=== PATIENT | female | born 1995 | race Caucasian/White ===

== ENCOUNTER 2021-05-31 17:39 | Observation (INO) | payer OTHER, SELFPAY ==
[~2021-05-31] VITALS: Ht 170.2 cm; Wt 103.0 kg
[~2021-05-31 17:39] MED LIST: ACET-10509 PO; FERR325E14 PO
[2021-05-31 17:49] VITALS: BP 126/72
--- NOTE | 2021-05-31 18:04 | NUR ---
Dr. Dill at the bedside evaluating patient.
--- NOTE | 2021-05-31 18:13 | NUR ---
C/O SALMERON, STABBING CP (04/07 TODAY), COUGH, SORE THROAT X 3 DAYS.COVID TESTED + 4 DAYS AGO. LMP 10/07/20. 33 WEEKS. PMH: OVARIAN CYST SURGERY Allergies: PCN Rx: denies
[2021-05-31] MEDS ORDERED: ACETAMINOPHEN 325 MG TAB PO ONE (18:20)
[2021-05-31] MEDS ORDERED: NACL 0.9% 1,000 ML IV ONE (18:20)
[2021-05-31] MEDS ORDERED: REGENERON ANTIBODY ER ORDER 1 EA MISC MC ONE (18:35)
--- NOTE | 2021-05-31 18:43 | NUR ---
Sinan at the pharmacy notified and aware of Regeneron Antibody order. Per Sinan at the pharmacy, he will notify the pharmacist of the order.
--- NOTE | 2021-05-31 18:44 | NUR ---
xray at the bedside Addendum: 05/31/21 at 1852 by FABIEN Amendment undariel in EDM - 05/31/21 at 1853 by FABIEN RT at the bedside scotty Mcbride
[2021-05-31 18:51] LABS: BASOPHILS % (AUTO) 0.2 % (0.0-2.0); HEMATOCRIT 39.4 % (36-48); LYMPHOCYTES # (AUTO) 0.8 K/uL (2.5-16.5); LYMPHOCYTES % (AUTO) 15.8 % (20.5-51.1); MEAN CORPUSCULAR HEMOGLOBIN 27 pg (27-31); MEAN CORPUSCULAR HGB CONC 33 g/dL (33-37); MEAN CORPUSCULAR VOLUME 81.2 fL (80-94); MONOCYTES # (AUTO) 0.3 K/uL (0.8-1.0); NEUTROPHILS # (AUTO) 4.2 K/uL (1.8-7.7); PLATELET COUNT (AUTO) 204 K/uL (140-450); RED BLOOD CELL COUNT(AUTO) 4.85 MIL/uL (4.20-5.40); WHITE BLOOD COUNT (AUTO) 5.3 K/uL (4.8-10.8)
--- NOTE | 2021-05-31 18:52 | NUR ---
RT at the bedside drawing Rae
--- NOTE | 2021-05-31 18:53 | NUR ---
NST being performed at the bedside
--- NOTE | 2021-05-31 18:57 | NUR ---
Novel Coronavirus, rosie, and influenza a/b specimens collected and given to rn labor and delivery.
[2021-05-31] MEDS ORDERED: NON-FORMULARY ITEM 1 EA in NACL 0.9% 100 ML IV SCH (19:00)
[2021-05-31] MEDS ORDERED: AZITHROMYCIN 500 MG in DEXTROSE 5% 250 ML IV ONE (19:05)
[2021-05-31 19:13] LABS: ALBUMIN 2.6 g/dL (3.4-5.0); ANION GAP 18.6 (8-16); CARBON DIOXIDE 16.8 mmol/L (21-32); CREATININE 0.7 mg/dL (0.6-1.3); POTASSIUM 3.4 mmol/L (3.5-5.1); TOTAL BILIRUBIN 0.5 mg/dL (0.0-1.0)
--- NOTE | 2021-05-31 19:23 | NUR ---
Report given to XENIA Freeman for continuation of care.
--- NOTE | 2021-05-31 19:24 | NUR ---
report received from kristofer johnson. transfer of care at this time.
--- NOTE | 2021-05-31 19:30 | NUR ---
pt is sitting up in bed, denies pain and discomfort. stated she is only sob of moving around. pt is in stable condition. vss.
--- NOTE | 2021-05-31 19:45 | NUR ---
Started Regeron iv on pt. vss. pt in stable condition.
--- NOTE | 2021-05-31 20:15 | NUR ---
regeneron completed pt continues in stable condition. vss.
[2021-05-31] MEDS ORDERED: cefTRIAXone 1,000 MG VIAL ONE (20:26)
[2021-05-31] MEDS ORDERED: AZITHROMYCIN 500 MG INJ VIAL IV ONE (20:45)
--- NOTE | 2021-05-31 21:00 | NUR ---
provided with food per request.
--- NOTE | 2021-05-31 21:15 | NUR ---
pt sitting up in bed eating. vss. denies pain and discomfort. temp retaken 97.6.
[2021-05-31] MEDS ORDERED: ACETAMINOPHEN 325 MG TAB PO PRN (21:35)
[2021-05-31] MEDS ORDERED: MAG SULF 2000 MG/WATER PREMIX 50 ML IV PRN (21:35)
[2021-05-31] MEDS ORDERED: HYDROcodone/APAP 5/325 MG 1 TAB TAB PO PRN (21:35)
[2021-05-31] MEDS ORDERED: POTASSIUM CHLORIDE 10 MEQ TABER PO PRN (21:35)
[2021-05-31] MEDS ORDERED: KCL 20 MEQ/WATER INJ PREMIX 200 ML IV PRN (21:35)
[2021-05-31] MEDS ORDERED: MAGNESIUM OXIDE 400 MG TAB PO PRN (21:35)
--- NOTE | 2021-05-31 21:56 | NUR ---
PT HAD A BM, UNABLE TO COLLECT URINE.
--- NOTE | 2021-05-31 22:15 | NUR ---
CALLED AND GAVE REPORT TO XENIA VILA EXT [phone]. GOING TO RM 113.
--- NOTE | 2021-05-31 22:30 | NUR ---
Patient will be admitted to care of . Admited to [facility]. Will go to room 113. Belongings list completed. Report to rolando miner.
--- NOTE | 2021-05-31 22:35 | NUR ---
PATIENT WAS BROUGHT TO THE UNIT FROM ER VIA WHEELCHAIR. CC: COUGH, SOB DX: COVID POSITIVE . AAOX4, AMBULATORY, 33 WEEKS . NO S/S OF RESPIRATORY DISTRESS. BREATHING REGULAR NON LABORED. AFEBRILE. MRSA SCREENING DONE. ALL SAFETY PRECAUTIONS ARE IN PLACE. CALL LIGHT WITHIN REACH. NO COMPLAINTS OF PAIN AT THIS TIME. WILL CONTINUE TO MONITOR.
[2021-06-01] VITALS: BP 106/70
--- NOTE | 2021-06-01 02:00 | NUR ---
COMPLAINED OF COUGHING, PAGED DR. FAGAN AWAITING FOR CALL BACK. ENCOURAGED PT TO DRINK WATER.
[2021-06-01 06:34] LABS: APPEARANCE,URINE CLEAR (CLEAR); BILIRUBIN,URINE NEGATIVE (NEGATIVE); BLOOD, URINE NEGATIVE (NEGATIVE); COLOR,URINE YELLOW (YELLOW); LEUKOCYTE ESTERASE ,URINE NEGATIVE (NEGATIVE); NITRITE, URINE NEGATIVE (NEGATIVE); UGLUCOSE TRACE (NEGATIVE)
--- NOTE | 2021-06-01 07:00 | NUR ---
PT COMPLAINED OF COUGHING. PAGED DR. LATOYA DR. CALLED BACK AT 0713 WITH ORDER OF SANTOSITUSSIN. ENDORSED TO THE AM NURSE FARRAH TO GIVE THE COUGH MEDICATION.
[2021-06-01 07:02] LABS: RBC,URINE 0-5 /HPF (0-5); WBC,URINE 0-5 /HPF (0-5)
[2021-06-01] MEDS ORDERED: guaiFENesin 20 MG/ML UDC PO PRN ×2 (07:15→08:27)
[2021-06-01 07:26] LABS: BASOPHILS % (AUTO) 0.1 % (0.0-2.0); HEMATOCRIT 36.6 % (36-48); HEMOGLOBIN 12.1 g/dL (12.0-16.0); LYMPHOCYTES # (AUTO) 0.8 K/uL (2.5-16.5); LYMPHOCYTES % (AUTO) 12.4 % (20.5-51.1); MEAN CORPUSCULAR HEMOGLOBIN 27 pg (27-31); MEAN CORPUSCULAR HGB CONC 33 g/dL (33-37); MEAN CORPUSCULAR VOLUME 80.4 fL (80-94); MONOCYTES # (AUTO) 0.2 K/uL (0.8-1.0); MONOCYTES % (AUTO) 3.6 % (1.7-9.3); NEUTROPHILS # (AUTO) 5.5 K/uL (1.8-7.7); NEUTROPHILS % (AUTO) 83.9 % (42.2-75.2); PLATELET COUNT (AUTO) 203 K/uL (140-450); RED BLOOD CELL COUNT(AUTO) 4.55 MIL/uL (4.20-5.40); WHITE BLOOD COUNT (AUTO) 6.5 K/uL (4.8-10.8)
--- NOTE | 2021-06-01 07:30 | NUR ---
PT RECEIVED FROM TRANSACTIONAL ATTORNEY RN . PT RESTING IN BED DANGLING WORRIED ABOUT HER CARE. PT EDUCATED REORIENTED TO HOSPITAL ENVIRONMENT AND POLICIES. CALL LIGHT WITHIN REACH
[2021-06-01 07:41] LABS: ALBUMIN 2.4 g/dL (3.4-5.0); ANION GAP 16.3 (8-16); CREATININE 0.6 mg/dL (0.6-1.3); MAGNESIUM 1.6 mg/dL (1.8-2.4); POTASSIUM 3.3 mmol/L (3.5-5.1); TOTAL BILIRUBIN 0.4 mg/dL (0.0-1.0)
--- NOTE | 2021-06-01 07:45 | NUR ---
MOTHER CALLED WAS WITH PT. CALLED BACK NO ANSWER
[2021-06-01 08:00] VITALS: BP 123/81
--- NOTE | 2021-06-01 08:15 | NUR ---
CALLED BACK MOTHER NO ANSWER.
[2021-06-01] MEDS: CEFEPIME 1,000 MG in DEXTROSE 5% 50 ML IV SCH ×2 (08:29→21:36)
--- NOTE | 2021-06-01 08:42 | NUR ---
TEMP 100.2 , TYLENOL PROVIDED Addendum: 06/01/21 at 1657 by Ramona Weiss RN RN ICE PACKS AND COOLING MEASURES PLACED
--- NOTE | 2021-06-01 08:54 | NUR ---
PATIENT HAS BEEN SCREENED AND CATEGORIZED HIGH NUTRITION RISK. PATIENT WILL BE SEEN WITHIN 1-2 DAYS OF ADMISSION. 06/01/21-06/02/[address]
[2021-06-01] MEDS: AZITHROMYCIN 500 MG in DEXTROSE 5% 250 ML IV SCH (09:00)
--- NOTE | 2021-06-01 09:45 | NUR ---
PT CONDITION IS STABLE. WILL CONTINUE TO MONITOR.
--- NOTE | 2021-06-01 10:27 | NUR ---
SPOKE TO PTS FAMILY , MOTHER [phone] . ALL QUESTIONS ANSWERED REGARDING DAUGHTERS CARE. PT STATES IT IS OKAY TO GIVE MOTHER INFORMATION .
[2021-06-01] MEDS: ONDANSETRON 4 MG/2 ML VIAL IVP PRN (11:41)
--- NOTE | 2021-06-01 11:42 | NUR ---
PT REASSESSED COMPLAINS OF NAUSEA , PRN MEDICATION GIVEN PER MD ORDER. PT EDUCATED VERBALIZED UNDERSTANDING . GREEN EMESIS BAG PROVIDED, SALT GIVEN PER REQUEST.
--- NOTE | 2021-06-01 15:22 | NUR ---
PT UPDATED WITH PLAN OF CARE, PT VERBALIZED UNDERSTANDING.
[2021-06-01 16:00] VITALS: BP 140/83
--- NOTE | 2021-06-01 16:06 | NUR ---
06/01/21 RD INITIAL ASSESSMENT COMPLETED PLEASE REFER TO NUTRITION ASSESSMENT UNDER CARE ACTIVITY FOR ESTIMATED NUTRITIONAL NEEDS. 1. RECOMMEND CCHO FOR GESTATION DIABETES 2. RECOMMEND VIT C, VITAMINS FOR COVID 3. RD TO FOLLOW-UP 3-5 DAYS, MODERATE RISK RAVIN CLARK, RD
--- NOTE | 2021-06-01 16:37 | NUR ---
RECEIVED TORB FOR [facility]GM FROM DR. KLEIN.
--- NOTE | 2021-06-01 16:57 | NUR ---
PATIENT PROVIDED ICE PACKS, AND ICE CHIPS . COOLING MEASURES ARE IN PLACE
--- NOTE | 2021-06-01 16:59 | NUR ---
ADMINISTERED ROBITUSSIN PRN FOR COUGH REQUESTED BY PT AND PER MD ORDER. WILL CONTINUE TO MONITOR PT STATUS.
--- NOTE | 2021-06-01 17:04 | NUR ---
CALLED DR. MONTOYA WITH NO ANSWER. SENT A TEXT MESSAGE REGARDING FOLLOW-UP. AWAITING REPLY.
--- NOTE | 2021-06-01 17:47 | NUR ---
PT EDUCATED ABOUT GOING AMA. PT VERBALIZED UNDERSTANDING . PT DECIDED TO STAY.
--- NOTE | 2021-06-01 19:07 | NUR ---
PT RESTING IN BED EYES CLOSED BREATHING IS SYMMETRICAL. WILL ENDORSE TO NIGHT NURSE FOR CONTINUITY OF CARE
--- NOTE | 2021-06-01 19:30 | NUR ---
received report form dayshift nurse. pt in stable condition.
--- NOTE | 2021-06-01 19:45 | NUR ---
GAVE CHANGE OF SHIFT REPORT TO MOTORS AND CONTROLS TESTER NURSE AT BEDSIDE FOR CONTINUITY OF CARE. PT CONDITION IS STABLE. Addendum: 06/01/21 at 1946 by Joan Shafer RN RN REVIEWED BI.
[2021-06-01 20:00] VITALS: BP 111/75
--- NOTE | 2021-06-01 21:00 | NUR ---
STARTED SCHEDULED ABX. PT TOLERATED WELL.
--- NOTE | 2021-06-01 23:06 | NUR ---
CALLED L/D FOR HEART MONITOR.
--- NOTE | 2021-06-02 00:10 | NUR ---
L/D NURSE PERFORMED HEART. 135 BASELINE, NO CONTRACTION.
--- NOTE | 2021-06-02 02:40 | NUR ---
GAVE PRN MAG-OX PO. FOR 1.6 MG LEVEL
[2021-06-02 04:00] VITALS: BP 97/60
[2021-06-02 07:12] LABS: ALBUMIN 2.2 g/dL (3.4-5.0); ANION GAP 14.8 (8-16); CARBON DIOXIDE 20.8 mmol/L (21-32); CREATININE 0.5 mg/dL (0.6-1.3); MAGNESIUM 1.9 mg/dL (1.8-2.4); POTASSIUM 3.6 mmol/L (3.5-5.1); TOTAL BILIRUBIN 0.4 mg/dL (0.0-1.0)
[2021-06-02 07:20] LABS: BASOPHILS % (AUTO) 0.2 % (0.0-2.0); EOSINOPHILS % (AUTO) 0.1 % (0.0-4.0); HEMATOCRIT 37.5 % (36-48); HEMOGLOBIN 12.5 g/dL (12.0-16.0); LYMPHOCYTES # (AUTO) 1.3 K/uL (2.5-16.5); LYMPHOCYTES % (AUTO) 29.2 % (20.5-51.1); MEAN CORPUSCULAR HEMOGLOBIN 27 pg (27-31); MEAN CORPUSCULAR HGB CONC 33 g/dL (33-37); MEAN CORPUSCULAR VOLUME 80.2 fL (80-94); MONOCYTES # (AUTO) 0.2 K/uL (0.8-1.0); MONOCYTES % (AUTO) 5.5 % (1.7-9.3); NEUTROPHILS # (AUTO) 2.8 K/uL (1.8-7.7); PLATELET COUNT (AUTO) 213 K/uL (140-450); RED BLOOD CELL COUNT(AUTO) 4.67 MIL/uL (4.20-5.40); RED CELL DISTRIBUTION WIDTH 15.2 % (11.6-13.7); WHITE BLOOD COUNT (AUTO) 4.3 K/uL (4.8-10.8)
--- NOTE | 2021-06-02 07:28 | NUR ---
ENDORSE PT TO DAYSHIFT NURSE FOR CONTINUITY OF CARE.
[2021-06-02] MEDS ORDERED: ASCO500T95 PO (11:03)
[2021-06-02] MEDS ORDERED: CEFU500T73 PO (11:03)
[2021-06-02] MEDS: AZITHROMYCIN 500 MG in DEXTROSE 5% 250 ML IV SCH (11:18)
[2021-06-02] MEDS: CEFEPIME 1,000 MG in DEXTROSE 5% 50 ML IV SCH (11:18)
--- NOTE | 2021-06-02 12:16 | NUR ---
Patient awake, alert and oriented, able to verbalize needs. Denies pain, vitals stable and remains in bed with no further needs.
[2021-06-02 12:17] VITALS: BP 95/57
[2021-06-02] MEDS: ONDANSETRON 4 MG/2 ML VIAL IVP PRN (12:32)
== END 2021-06-02 15:27 | disposition home or self-care (01) ==
LOC: MED 17:39 → MTU 21:39
PROVIDERS: ADMIT Internal Medicine; ATTEND Internal Medicine
DX: U07.1 COVID-19 (principal); O99.283 Endocrine, nutritional and metabolic diseases complicating pregnancy, third trimester; E87.6 Hypokalemia; E83.42 Hypomagnesemia; E88.09 Other disorders of plasma-protein metabolism, not elsewhere classified; E87.2 Acidosis; Z3A.33 33 weeks gestation of pregnancy; Z79.899 Other long term (current) drug therapy
CPT/HCPCS: 36415; 36600; 71045; 76805; 80053; 81001; 82550; 82728; 82803; 83036; 83605; 83615; 83735; 84484; 85025; 85379; 86140; 87040; 87081; 87426; 87804; 93005; 93970; 96365; 96366; 96367; 96368; 99291; G0378; J0456; J0692; J0696; J2405; J7060; U0003; 96361; Q0092

== ENCOUNTER 2021-07-03 10:17 | Observation (INO) | payer OTHER, SELFPAY ==
[~2021-07-03] VITALS: Ht 170.2 cm; Wt 99.3 kg
[~2021-07-03 10:17] MED LIST changes: +ASCO500T95 PO; +CEFU500T73 PO
[2021-07-03 12:00] VITALS: BP 122/68
[2021-07-03] MEDS ORDERED: PNV91TAB8 PO (14:25)
== END 2021-07-03 14:35 | disposition home or self-care (01) ==
LOC: MLD 10:17
PROVIDERS: ADMIT Obstetrics & Gynecology; ATTEND Obstetrics & Gynecology
DX: O47.1 False labor at or after 37 completed weeks of gestation (principal); Z20.822 Contact with and (suspected) exposure to COVID-19; Z3A.38 38 weeks gestation of pregnancy
CPT/HCPCS: 76815; 87426; G0378; Q0092; 59025; 81000

== ENCOUNTER 2021-07-06 14:55 | Observation (INO) | payer OTHER ==
[~2021-07-06 14:55] MED LIST changes: -ACET-10509 PO; -ASCO500T95 PO; -CEFU500T73 PO; -FERR325E14 PO; +PNV91TAB8 PO
== END 2021-07-06 18:53 | disposition home or self-care (01) ==
LOC: INTOOBSV 14:55 → MLD 14:55
PROVIDERS: ADMIT Obstetrics & Gynecology; ATTEND Obstetrics & Gynecology
DX: O47.1 False labor at or after 37 completed weeks of gestation (principal); Z3A.38 38 weeks gestation of pregnancy; Z88.0 Allergy status to penicillin
CPT/HCPCS: 59025; 76815; G0378; Q0092

== ENCOUNTER 2021-07-07 11:58 | Inpatient (IN) | payer OTHER, SELFPAY ==
[~2021-07-07] VITALS: Ht 170.2 cm; Wt 98.9 kg
[2021-07-07] MEDS ORDERED: NALBUPHINE 10 MG/ML AMP IVP PRN (12:30)
[2021-07-07] MEDS ORDERED: MISOPROSTOL 25 MCG TAB VG ONE (12:30)
[2021-07-07] MEDS ORDERED: PROMETHAZINE 25 MG/ML VIAL IVP PRN (12:30)
[2021-07-07] MEDS ORDERED: METHYLERGONOVINE 0.2 MG/ML AMP IM PRN (12:30)
[2021-07-07] MEDS ORDERED: CARBOPROST 250 MCG/ML AMP IM PRN (12:30)
[2021-07-07] MEDS ORDERED: OXYTOCIN 10 UNITS/ML VIAL IM SCH (12:30)
[2021-07-07 13:26] VITALS: BP 119/77
[2021-07-07 13:27] LABS: BASOPHILS % (AUTO) 0.3 % (0.0-2.0); EOSINOPHILS % (AUTO) 0.4 % (0.0-4.0); HEMATOCRIT 37.2 % (36-48); HEMOGLOBIN 12.2 g/dL (12.0-16.0); LYMPHOCYTES # (AUTO) 1.8 K/uL (2.5-16.5); LYMPHOCYTES % (AUTO) 22.5 % (20.5-51.1); MEAN CORPUSCULAR HEMOGLOBIN 26 pg (27-31); MEAN CORPUSCULAR HGB CONC 33 g/dL (33-37); MONOCYTES # (AUTO) 0.5 K/uL (0.8-1.0); MONOCYTES % (AUTO) 6.2 % (1.7-9.3); NEUTROPHILS # (AUTO) 5.8 K/uL (1.8-7.7); NEUTROPHILS % (AUTO) 70.6 % (42.2-75.2); PLATELET COUNT (AUTO) 74 K/uL (140-450); RED BLOOD CELL COUNT(AUTO) 4.65 MIL/uL (4.20-5.40); RED CELL DISTRIBUTION WIDTH 16.2 % (11.6-13.7); WHITE BLOOD COUNT (AUTO) 8.2 K/uL (4.8-10.8)
[2021-07-07 13:30] LABS: APPEARANCE,URINE CLEAR (CLEAR); BILIRUBIN,URINE NEGATIVE (NEGATIVE); BLOOD, URINE NEGATIVE (NEGATIVE); COLOR,URINE YELLOW (YELLOW); LEUKOCYTE ESTERASE ,URINE NEGATIVE (NEGATIVE); NITRITE, URINE NEGATIVE (NEGATIVE); UGLUCOSE NEGATIVE (NEGATIVE)
[2021-07-07 14:13] LABS: ALBUMIN 2.7 g/dL (3.4-5.0); ANION GAP 14.4 (8-16); CARBON DIOXIDE 20.3 mmol/L (21-32); POTASSIUM 3.7 mmol/L (3.5-5.1); TOTAL BILIRUBIN 0.3 mg/dL (0.0-1.0)
[2021-07-07] MEDS ORDERED: MISOPROSTOL 25 MCG TAB ONE (15:20)
[2021-07-07] MEDS: LACTATED RINGERS 1,000 ML IV SCH ×2 (15:43→17:58)
[2021-07-07 20:14] LABS: CREATININE 0.7 mg/dL (0.6-1.3)
[2021-07-08] MEDS ORDERED: OXYTOCIN 20 UNITS/LR PREMIX 1,000 ML IV ONE (03:56)
[2021-07-08] MEDS ORDERED: OXYTOCIN 20 UNITS in LACTATED RINGERS 1,000 ML IV SCH ×2 (04:05→08:35)
[2021-07-08] MEDS: LACTATED RINGERS 1,000 ML IV SCH (09:40)
[2021-07-08 10:34] LABS: BASOPHILS % (AUTO) 0.3 % (0.0-2.0); EOSINOPHILS % (AUTO) 0.2 % (0.0-4.0); HEMATOCRIT 37.1 % (36-48); HEMOGLOBIN 12.1 g/dL (12.0-16.0); LYMPHOCYTES # (AUTO) 1.8 K/uL (2.5-16.5); LYMPHOCYTES % (AUTO) 23.7 % (20.5-51.1); MEAN CORPUSCULAR HEMOGLOBIN 26 pg (27-31); MEAN CORPUSCULAR HGB CONC 33 g/dL (33-37); MEAN CORPUSCULAR VOLUME 80.9 fL (80-94); MONOCYTES # (AUTO) 0.4 K/uL (0.8-1.0); MONOCYTES % (AUTO) 5.8 % (1.7-9.3); NEUTROPHILS # (AUTO) 5.3 K/uL (1.8-7.7); PLATELET COUNT (AUTO) 64 K/uL (140-450); RED BLOOD CELL COUNT(AUTO) 4.58 MIL/uL (4.20-5.40); RED CELL DISTRIBUTION WIDTH 16.5 % (11.6-13.7); WHITE BLOOD COUNT (AUTO) 7.6 K/uL (4.8-10.8)
[2021-07-08] MEDS ORDERED: predniSONE 20 MG TAB PO SCH (15:50)
[2021-07-08] MEDS ORDERED: TERBUTALINE 1 MG/ML VIAL SUBQ ONE (15:50)
[2021-07-08] MEDS: TERBUTALINE 1 MG/ML VIAL SUBQ SCH ×2 (15:57→16:30)
[2021-07-08 16:32] LABS: ALBUMIN 2.6 g/dL (3.4-5.0); BILIRUBIN,DIRECT 0.1 mg/dL (0.0-0.3); TOTAL BILIRUBIN 0.2 mg/dL (0.0-1.0)
== END 2021-07-08 19:27 | disposition short-term general hospital (02) | DRG 560 ==
LOC: MLD 11:58
PROVIDERS: ADMIT Obstetrics & Gynecology; ATTEND Obstetrics & Gynecology
PROC: 10E0XZZ Delivery of Products of Conception, External Approach (ICD-10-PCS; principal; 2021-07-07)
PROC: 3E033VJ Introduction of Other Hormone into Peripheral Vein, Percutaneous Approach (ICD-10-PCS; 2021-07-07)
PROC: 3E0P7VZ Introduction of Hormone into Female Reproductive, Via Natural or Artificial Opening (ICD-10-PCS; 2021-07-07)
DX: O80 Encounter for full-term uncomplicated delivery (principal); Z37.0 Single live birth; Z3A.00 Weeks of gestation of pregnancy not specified
CPT/HCPCS: 36415; 80053; 80076; 81003; 85025; 85379; 85384; 85610; 85730; 86592; 86850; 86886; 86900; 86901; 86920; J2590; J3105; J7512